=== PATIENT | female | born 1985 | race African-American/Black ===

== ENCOUNTER 2022-11-27 12:34 | Outpatient (CLI) | payer BC | END 2022-11-27 12:35 | disposition home or self-care (01) | LOC: DTY/OP 12:34 | PROVIDERS: ATTEND Surgery | DX: K21.9 Gastro-esophageal reflux disease without esophagitis (principal); E66.01 Morbid (severe) obesity due to excess calories; Z68.41 Body mass index [BMI] 40.0-44.9, adult | CPT/HCPCS: 97802 ==

== ENCOUNTER 2023-01-30 13:30 | Inpatient (IN) | payer BC ==
[2023-02-12] MEDS ORDERED: EPINEPHrine 1 MG/ML VIAL ONE (06:33)
[2023-02-12] MEDS ORDERED: Bupivacaine 0.25% HCL 30 ML VIAL ONE (06:33)
[2023-02-12] MEDS ORDERED: Sodium Chloride 0.9% 100 ML ONE (06:40)
[2023-02-12] MEDS ORDERED: CEFAZOLIN 2 GM VIAL ONE (06:40)
[2023-02-12] MEDS ORDERED: Lidocaine 1% MPF 2 ML VIAL ONE (06:40)
[2023-02-12] MEDS ORDERED: PROPOFOL 20 ML ONE (07:07)
[2023-02-12] MEDS ORDERED: fentaNYL PF 100 MCG/2 ML SYRINGE ONE ×2 (07:07→08:12)
[2023-02-12] MEDS ORDERED: Lidocaine 1% PF 5 ML VIAL ONE ×2 (07:08→07:43)
[2023-02-12] MEDS ORDERED: Rocuronium Bromide 10 MG/ML (10ML VIAL) ONE ×2 (07:08→07:43)
[2023-02-12] MEDS ORDERED: Famotidine/PF 20 mg/2ml Vial ONE (07:13)
[2023-02-12] MEDS ORDERED: Midazolam HCl 2 mg/2 ml Vial ONE (07:13)
[2023-02-12] MEDS ORDERED: Promethazine HCl 25 MG/ML VIAL IM PRN ×4 (07:18→11:39)
[2023-02-12] MEDS ORDERED: Ondansetron HCl/PF 4 MG/2 ML Vial IVP PRN ×2 (07:18→09:47)
[2023-02-12] MEDS ORDERED: Meperidine HCl/PF 25 MG/ML VIAL SLOW IVP PRN (07:18)
[2023-02-12] MEDS ORDERED: Dexamethasone 20 MG/5 ML VIAL ONE ×2 (07:43→08:04)
[2023-02-12] MEDS ORDERED: PROPOFOL 200 MG/20 ML VIAL ONE (07:43)
[2023-02-12] MEDS ORDERED: Ondansetron PF 4 MG/2 ML Vial ONE ×2 (07:43→09:19)
[2023-02-12] MEDS ORDERED: HYDROmorphone 2 MG/ML VIAL ONE (09:15)
[2023-02-12] MEDS ORDERED: SUGAMMADEX SODIUM 200 MG/2 ML VIAL ONE (09:15)
[2023-02-12] MEDS ORDERED: Ondansetron PF 4 MG/2 ML Vial IVP PRN ×2 (09:47→11:39)
[2023-02-12] MEDS ORDERED: diphenhydrAMINE 25 MG CAP PO PRN (09:47)
[2023-02-12] MEDS ORDERED: Naloxone HCl 0.4 mg/ml Vial IV PRN (09:47)
[2023-02-12] MEDS ORDERED: diphenhydrAMINE 50 MG/ML VIAL IVP PRN ×2 (09:47→11:39)
[2023-02-12] MEDS ORDERED: FENTANYL 500 MCG/10 ML VIAL 2,000 MCG in Sodium Chloride 0.9% 60 ML IV PRN (09:47)
[2023-02-12] MEDS ORDERED: diphenhydrAMINE 50 MG/ML VIAL IM PRN (09:47)
[2023-02-12] MEDS ORDERED: Communication Order-Pharmacy FS SCH (10:00)
[2023-02-12] MEDS ORDERED: Labetalol HCl 100 MG/20 ML VIAL ONE (10:05)
[2023-02-12] MEDS ORDERED: Fentanyl 250 MCG/5 ML VIAL ONE (10:05)
[2023-02-12] MEDS ORDERED: diphenhydrAMINE 50 MG/ML VIAL ONE (10:52)
[2023-02-12] MEDS ORDERED: Hydrocodone-Acetamin 15 ML UDCUP PO PRN (11:39)
[2023-02-12] MEDS ORDERED: Glucagon 1 MG/ML KIT IM PRN (11:39)
[2023-02-12] MEDS ORDERED: Ipratropium/Albuterol 3 ML NEB NEB PRN (11:39)
[2023-02-12] MEDS ORDERED: Dextrose 5% in Water 1,000 ML IV PRN (11:39)
[2023-02-12] MEDS ORDERED: Dextrose 50% Abboject 50 ML SYRINGE SLOW IVP PRN (11:39)
[2023-02-12] MEDS ORDERED: hydrALAZINE 20 MG/ML VIAL SLOW IVP PRN (11:39)
[2023-02-12 14:56] VITALS: BMI 42.3
[2023-02-12] MEDS ORDERED: Benzocaine/Menthol 1 LOZ LOZ PO PRN (18:09)
[2023-02-12] MEDS ORDERED: Acetaminophen 650 MG/20.3 ML UDCUP PO PRN (20:01)
[2023-02-12] MEDS: D5 1/2 NS w/20 mEq KCL 1,000 ML IV SCH (20:19)
[2023-02-13] MEDS: D5 1/2 NS w/20 mEq KCL 1,000 ML IV SCH (05:14)
[2023-02-13 05:20] LABS: #Monocytes 0.9 thou/uL (0.11-0.59); %Basophils 0.1 % (0.0-1.0); %Eosinophils 0.1 % (0.0-10.0); %Lymphocytes 17.9 % (21.0-51.0); %Monocytes 8.4 % (0.0-10.0); %Neutrophils 73.2 % (42.0-75.0); Hematocrit 37.3 % (36.0-47.0); Hemoglobin 11.7 g/dL (12.0-16.0); Mean Corpuscular HGB CONC 31.4 g/dL (32.0-36.0); Mean Corpuscular Hemoglobin 26.4 pg (27.0-31.0); Mean Platelet Volume 8.7 fL (7.4-10.4); Platelet Count 436 10x3/uL (130-400); RBC Distribution Width 16.5 % (11.5-14.5); Red Blood Cell (RBC) Count 4.44 mill/uL (4.20-5.40); White Blood Cell (WBC) Count 10.9 10x3/uL (4.8-10.8)
[2023-02-13 05:47] LABS: Anion Gap 13 mmol/L (10-20); BUN (Urea Nitrogen) 4 mg/dL (7.0-18.7); Calc. Creatinine Clearance 168 mL/min (70-130); Calcium 9.1 mg/dL (7.8-10.44); Carbon Dioxide 27 mmol/L (22-29); Chloride 98 mmol/L (98-107); Estimated GFR 90; Glucose 123 mg/dL (70-105); Potassium 2.8 mmol/L (3.5-5.1); Sodium 135 mmol/L (136-145)
[2023-02-13] MEDS ORDERED: Mirabegron ER 25 MG ER.TAB PO SCH ×2 (09:00)
[2023-02-13] MEDS ORDERED: Pantoprazole 40 MG VIAL IVP SCH (09:00)
[2023-02-13] MEDS ORDERED: Chlorthalidone 25 MG TAB PO SCH (09:00)
[2023-02-13] MEDS ORDERED: Metoclopramide HCl 10 MG/2 ML VIAL IVP PRN (10:17)
[2023-02-13] MEDS ORDERED: Ketorolac Tromethamine 30 MG/ML VIAL IVP PRN (13:29)
[2023-02-13] MEDS ORDERED: Fentanyl 100 MCG/2 ML VIAL SLOW IVP PRN (13:30)
[2023-02-13 16:11] VITALS: BP 139/88; TEMP 99.4
== END 2023-02-13 19:15 | disposition home or self-care (01) | DRG 621 ==
LOC: SURG A 02-12 06:25
PROVIDERS: ADMIT Surgery; ATTEND Surgery
PROC: 0D164ZA Bypass Stomach to Jejunum, Percutaneous Endoscopic Approach (ICD-10-PCS; principal; 2023-02-12)
PROC: 8E0W4CZ Robotic Assisted Procedure of Trunk Region, Percutaneous Endoscopic Approach (ICD-10-PCS; 2023-02-12)
DX: E66.01 Morbid (severe) obesity due to excess calories (principal); Z68.41 Body mass index [BMI] 40.0-44.9, adult; K21.9 Gastro-esophageal reflux disease without esophagitis; Z90.49 Acquired absence of other specified parts of digestive tract
CPT/HCPCS: 36415; 80048; 85025; C9113; J0171; J1100; J1170; J1200; J1650; J2250; J2405; J2704; J2765; J3010; J3480; J3490; S0020; S0028

== ENCOUNTER 2023-01-30 13:38 | Outpatient (CLI) | payer BC ==
[2023-01-30 15:10] LABS: Anion Gap 13 mmol/L (10-20); BUN (Urea Nitrogen) 15 mg/dL (7.0-18.7); Calc. Creatinine Clearance 0 mL/min (70-130); Calcium 9.1 mg/dL (7.8-10.44); Carbon Dioxide 25 mmol/L (22-29); Chloride 106 mmol/L (98-107); Estimated GFR 81; Glucose 77 mg/dL (70-105); Potassium 3.8 mmol/L (3.5-5.1); Sodium 140 mmol/L (136-145)
[2023-01-30 15:21] LABS: #Basophils 0.1 10x3/uL (0.0-0.2); #Eosinphils 0.1 10x3/uL (0.0-0.5); #Monocytes 0.8 10x3/uL (0.0-1.1); #Neutrophils 3.8 10x3/uL (1.5-8.4); %Basophils 0.6 % (0.0-2.0); %Eosinophils 1.2 % (0.0-6.0); %Lymphocytes 38.2 % (18.0-47.0); %Monocytes 10.4 % (0.0-10.0); %Neutrophils 49.2 % (40.0-75.0); Hematocrit 33.8 % (34.9-44.5); Hemoglobin 10.4 g/dL (12.0-15.5); Mean Corpuscular HGB CONC 30.8 g/dL (32.0-36.0); Mean Corpuscular Hemoglobin 25.1 pg (27.0-33.0); Mean Corpuscular Volume 81.4 fl (81.6-98.3); Mean Platelet Volume 9.2 fl (7.4-10.4); Platelet Count 349 10x3/uL (150-450); RBC Distribution Width 14.6 % (11.5-14.5); Red Blood Cell (RBC) Count 4.15 10x6/uL (3.90-5.03); White Blood Cell (WBC) Count 7.8 10x3/uL (3.5-10.5)
== END 2023-01-30 13:39 | disposition home or self-care (01) ==
LOC: LABBT 13:38
PROVIDERS: ATTEND Surgery
DX: Z01.818 Encounter for other preprocedural examination (principal); E66.01 Morbid (severe) obesity due to excess calories
CPT/HCPCS: 80048; 85025; 93005; 93010

== ENCOUNTER 2024-04-16 09:39 | Outpatient (CLI) | payer BC, OTHER ==
[2024-04-16] MEDS ORDERED: E-Z-HD 98% W/W 340GM BOT (x-ray ONLY) ONE (09:49)
[2024-04-16] MEDS ORDERED: Barium Sulfate 96% 176 GM BOT (xray ONLY) ONE (09:49)
== END 2024-04-16 09:40 | disposition home or self-care (01) ==
LOC: RAD 09:39
PROVIDERS: ATTEND Surgery
DX: R13.19 Other dysphagia (principal); Z98.84 Bariatric surgery status
CPT/HCPCS: 74220